=== PATIENT | female | born 1960 | race African-American/Black ===

== ENCOUNTER 2020-01-26 11:43 | Emergency (ER) | payer MEDICAID ==
[~2020-01-26] VITALS: Ht 167.6 cm; Wt 80.0 kg
[2020-01-26 12:18] LABS: BASOPHILS % 0.6 % (0.0-2.0); EOSINOPHILS % 3.3 % (0.0-5.0); HEMATOCRIT. 37.5 % (36.0-48.0); HEMOGLOBIN. 12.5 g/dL (12.0-16.0); LYMPHOCYTES % 21.3 % (20.0-50.0); MEAN CORPUSCULAR HEMOGLOBIN 26.8 pg (28.0-32.0); MEAN CORPUSCULAR VOLUME 80.5 fL (81.0-99.0); MONOCYTES % 5.2 % (2.0-8.0); NEUTROPHILS % 69.6 % (40.0-76.0); PLATELET 335 x1000/uL (130-400); RED BLOOD CELL COUNT 4.66 mill/uL (4.2-5.4); RED CELL DISTRIBUTION WIDTH 18.3 % (11.6-14.6)
[2020-01-26 12:22] LABS: CHLORIDE 103 mEq/L (98-107)
[2020-01-26 13:48] VITALS: BP 139/76
== END 2020-01-26 14:05 | disposition home or self-care (01) ==
LOC: ER 11:57
DX: T40.5X1A Poisoning by cocaine, accidental (unintentional), initial encounter (principal); R06.02 Shortness of breath; R10.84 Generalized abdominal pain; F14.188 Cocaine abuse with other cocaine-induced disorder; I10 Essential (primary) hypertension; Y92.89 Other specified places as the place of occurrence of the external cause
CPT/HCPCS: 36415; 71045; 80053; 83880; 84484; 85025; 93005; 99285

== ENCOUNTER 2023-01-14 07:26 | Emergency (ER) | payer MEDICAID, OTHER ==
[~2023-01-14] VITALS: Ht 160 cm; Wt 81.6 kg
[2023-01-14 07:50] VITALS: TEMP 98; O2SAT 98
[2023-01-14 10:15] VITALS: BP 143/86; PULSE 64; RESP 16
[2023-01-14] MEDS ORDERED: HYDROCODONE/ACETAMINOPHEN 5/325MG TABLET PO ONE (10:15)
== END 2023-01-14 12:17 | disposition home or self-care (01) ==
LOC: ER 07:26
DX: M79.671 Pain in right foot (principal); F14.10 Cocaine abuse, uncomplicated; I10 Essential (primary) hypertension; E11.9 Type 2 diabetes mellitus without complications
CPT/HCPCS: 73630; 99283

== ENCOUNTER 2024-02-15 16:57 | Emergency (ER) | payer OTHER ==
[~2024-02-15] VITALS: Ht 165.1 cm; Wt 60.0 kg
[2024-02-15 16:59] VITALS: O2SAT 99
[2024-02-15] MEDS ORDERED: ACETAMINOPHEN 500MG TABLET PO ONE (18:45)
[2024-02-15] MEDS: ACETAMINOPHEN 500MG TABLET PO NR (20:03)
[2024-02-15 21:52] VITALS: BP 140/78; PULSE 72; RESP 16; TEMP 36.55848; O2SAT 100
== END 2024-02-15 21:54 | disposition home or self-care (01) ==
LOC: ER 17:12
DX: S00.83XA Contusion of other part of head, initial encounter (principal); I10 Essential (primary) hypertension; F14.10 Cocaine abuse, uncomplicated; W18.39XA Other fall on same level, initial encounter; Y93.89 Activity, other specified; Y92.89 Other specified places as the place of occurrence of the external cause; Y99.8 Other external cause status
CPT/HCPCS: 70486; 99284

== ENCOUNTER 2024-07-31 11:23 | Emergency (ER) | payer MEDICAID, OTHER ==
[~2024-07-31] VITALS: Ht 157.5 cm; Wt 65.7 kg
[2024-07-31 11:25] VITALS: O2SAT 98
[2024-07-31 11:39] VITALS: BP 180/102; PULSE 70; RESP 16; TEMP 37.1; O2SAT 100
== END 2024-07-31 15:11 | disposition left against medical advice (07) ==
LOC: ER 11:23
DX: Z13.89 Encounter for screening for other disorder (principal); I10 Essential (primary) hypertension; F14.90 Cocaine use, unspecified, uncomplicated; F10.90 Alcohol use, unspecified, uncomplicated; Z90.710 Acquired absence of both cervix and uterus; Y90.9 Presence of alcohol in blood, level not specified
CPT/HCPCS: 99281